=== PATIENT | male | born 1995 | race American Indian/Alaskan Native ===

== ENCOUNTER 2019-03-12 17:01 | Emergency (ER) | payer BC, OTHER ==
[~2019-03-12] VITALS: Ht 175.3 cm; Wt 95.2 kg
[~2019-03-12 17:01] MED LIST: CLINDAMYCIN HC300 MG PO; IBUPROFEN600 MG PO; NORCO 5-325 TA1 EACH PO; PERCOCET 10-321 EACH PO
== END 2019-03-12 19:13 | disposition home or self-care (01) ==
LOC: ED 17:01
DX: S13.4XXA Sprain of ligaments of cervical spine, initial encounter (principal); S83.92XA Sprain of unspecified site of left knee, initial encounter; V49.9XXA Car occupant (driver) (passenger) injured in unspecified traffic accident, initial encounter; F17.200 Nicotine dependence, unspecified, uncomplicated; Z88.0 Allergy status to penicillin
CPT/HCPCS: 72125; 73560; 99284-25

== ENCOUNTER 2021-03-06 11:23 | Emergency (ER) | payer OTHER ==
[~2021-03-06] VITALS: Ht 175.3 cm; Wt 81.6 kg
[2021-03-06] MEDS ORDERED: NARCAN4 MG NAS (12:51)
== END 2021-03-06 13:14 | disposition home or self-care (01) ==
LOC: ED 11:23
DX: T40.601A Poisoning by unspecified narcotics, accidental (unintentional), initial encounter (principal); F17.200 Nicotine dependence, unspecified, uncomplicated; Z88.0 Allergy status to penicillin
CPT/HCPCS: 99284

== ENCOUNTER 2021-07-26 04:04 | Emergency (ER) | payer OTHER ==
[~2021-07-26] VITALS: Ht 175.3 cm; Wt 88.0 kg
[~2021-07-26 04:04] MED LIST changes: +NARCAN4 MG NAS
== END 2021-07-26 04:41 | disposition home or self-care (01) ==
LOC: ED 04:04
DX: F10.129 Alcohol abuse with intoxication, unspecified (principal); F17.200 Nicotine dependence, unspecified, uncomplicated; Z88.0 Allergy status to penicillin; Z79.899 Other long term (current) drug therapy
CPT/HCPCS: 99284

== ENCOUNTER 2024-08-06 05:16 | Emergency (ER) | payer OTHER ==
[~2024-08-06] VITALS: Ht 175.3 cm; Wt 90.0 kg
[2024-08-06 05:57] LABS: BASOPHILS 0.6 % (0-2); EOSINOPHILS 0.5 % (0-6); HEMATOCRIT 48.5 % (35.0-50.0); LYMPHOCYTES 28.1 % (24-44); MCH 30.1 (27-36); MONOCYTES 6.1 % (0-12); NEUTROPHILS 64.7 % (39-80); PLATELET COUNT 296 K/uL (140-440); RBC 5.64 M/ul (4.3-5.7); RDW 14.1 (10.5-15.0)
[2024-08-06 06:07] LABS: ALBUMIN 4.6 g/dL (3.4-5.0); ALBUMIN/GLOBULIN RATIO 1.18 (1.1-2.4); ANION GAP 17.1 (7-21); BILIRUBIN, TOTAL 0.2 mg/dL (0.2-1.0); BUN/CREATININE RATIO 11.3 (6.0-28.6); CALCIUM 8.5 mg/dL (8.5-10.1); CREATININE, SERUM 1.15 mg/dL (0.70-1.30); POTASSIUM 4.1 mmol/L (3.5-5.1); PROTEIN, TOTAL 8.5 g/dL (6.4-8.2)
[2024-08-06 06:25] VITALS: BP 148/90
== END 2024-08-06 06:25 | disposition other institution, planned readmission (95) ==
LOC: ED 05:16
PROVIDERS: Internal Medicine
DX: Z02.89 Encounter for other administrative examinations (principal); F10.129 Alcohol abuse with intoxication, unspecified; V89.2XXA Person injured in unspecified motor-vehicle accident, traffic, initial encounter; F17.200 Nicotine dependence, unspecified, uncomplicated; Z88.0 Allergy status to penicillin; Z79.899 Other long term (current) drug therapy
CPT/HCPCS: 36415; 70450; 71045; 72125; 80053; 80307; 82550; 83690; 83735; 85025; 99284-25; G0480